=== PATIENT | female | born 1975 | race Caucasian/White ===

== ENCOUNTER → 2016-08-13 | Outpatient (CLI) | payer BC ==
[~2016-08-13] MED LIST: ATV5 PO; DIPH-416 PO; EFF75 PO; EFFSR150 PO; FERR325T51 PO; LANS30CA12 PO; LISI-729 PO; MULT-506 PO; ZIPR60CA PO
--- NOTE | 2016-08-13 14:56 | DIAGNOSTIC IMAGING REPORT ---
PELVIS 1 OR 2 VIEWS CLINICAL HISTORY: Pain in pelvis and left femur COMPARISON STUDY: None. FINDINGS: No acute fracture or dislocation within the pelvis or hips. There is a left femoral intramedullary julio césar with interlocking proximal screws. The hardware appears intact. Cartilage spaces are maintained for age. There is partial sacralization of the L5 vertebral body. This demonstrates pseudoarthrosis of the right L5 transverse process with the sacrum. IMPRESSION: No acute fracture or dislocation within the pelvis or hips. Electronically signed by: Joey Mcknight M.D. 08/13/2016 2:54 PM Dictated Date/Time: 08/13/2016 2:52 PM
--- NOTE | 2016-08-13 14:59 | DIAGNOSTIC IMAGING REPORT ---
LEFT FEMUR 4 VIEWS HISTORY: Pain in pelvis and left femur COMPARISON: None. FINDINGS: No acute fracture or dislocation within the left femur. Soft tissues are unremarkable. There is a left femoral intramedullary julio césar with proximal and distal interlocking screws. The hardware is intact. This traverses an old, healed fracture within the left femur. No abnormal periprosthetic lucency. IMPRESSION: Status post internal fixation of an old, healed left femur fracture. No evidence for hardware complication. No acute fracture or dislocation. Electronically signed by: Joey Mcknight M.D. 08/13/2016 2:57 PM Dictated Date/Time: 08/13/2016 2:55 PM
== END | disposition home or self-care (01) ==
LOC: C.RDSM 08:00
PROVIDERS: ATTEND Physician Assistant
DX: R10.2 Pelvic and perineal pain (principal); M79.652 Pain in left thigh

== ENCOUNTER → 2016-12-20 | Outpatient (CLI) | payer BC, OTHER ==
--- NOTE | 2016-12-20 08:55 | DIAGNOSTIC IMAGING REPORT ---
LEFT FOOT MIN 3 VIEWS, RIGHT FOOT MIN 3 VIEWS HISTORY: 41 years-old Female acute bilateral heel pain without reported trauma COMPARISON: Right foot radiographs 01/12/2015, right toe radiographs 02/25/2015. TECHNIQUE: 3 standing views of the bilateral feet for a total of 6 images. FINDINGS: LEFT FOOT: There is a 6 mm linear density adjacent to the medial aspect of the fourth metatarsal seen only in the frontal view which is nonspecific. No acute fracture or dislocation. There is mild/moderate spurring about the distal talus with degenerative changes of the tibiotalar joint. There is minimal spurring of both the plantar and Achilles insertion sites about the calcaneus. There is a amorphous soft tissue prominence in the region of the distal Achilles tendon RIGHT FOOT: Mild degenerative changes are noted throughout the mid foot. Mild hammertoe deformities are noted. No acute fracture or dislocation is identified. There is an unchanged 5 mm bone fragment interposed between the first and second metatarsal bases suggesting an os intermetatarseum. There is moderate spurring of the dorsal midfoot and tibiotalar joint. Pes planus deformity is noted. Nonspecific 4 mm soft tissue calcification is noted near the Kager fat-pad. Mild spurring is noted about the plantar insertion site of the calcaneus. IMPRESSION: 1. No acute fracture or dislocation. 2. Mild spurring of the plantar insertion sites about the calcaneus, left greater than right which can be seen in cases of chronic planter fasciitis. 3. Amorphous soft tissue prominence in the region of the distal left Achilles tendon may reflect underlying tendinopathy and could be further evaluated with MRI if clinically indicated. The above report was generated using voice recognition software. It may contain grammatical, syntax or spelling errors. Electronically signed by: Brian Burrows M.D. 12/20/2016 8:53 AM Dictated Date/Time: 12/20/2016 8:46 AM
== END | disposition home or self-care (01) ==
LOC: C.RDSM 08:30
PROVIDERS: ATTEND Podiatrist
DX: M79.673 Pain in unspecified foot (principal); M79.9 Soft tissue disorder, unspecified